=== PATIENT | female | born 1985 ===

== ENCOUNTER 2022-12-18 10:14 | Inpatient (IN) | payer OTHER ==
[~2022-12-18] VITALS: Ht 162.6 cm; Wt 70.8 kg
[2022-12-25] MEDS ORDERED: NAPR500T14 PO (09:13)
[2022-12-25] MEDS ORDERED: Tylenol #3 PO (09:13)
== END 2022-12-25 09:29 | disposition home or self-care (01) | DRG 743 ==
LOC: OB/GYN 12-24 07:30 → O/R 12-24 09:05 → OB/GYN 12-24 15:30
PROVIDERS: ADMIT Obstetrics & Gynecology; ATTEND Obstetrics & Gynecology
PROC: 0UT7FZZ Resection of Bilateral Fallopian Tubes, Via Natural or Artificial Opening With Percutaneous Endoscopic Assistance (ICD-10-PCS; 2022-12-24)
PROC: 0JQC0ZZ Repair Pelvic Region Subcutaneous Tissue and Fascia, Open Approach (ICD-10-PCS; 2022-12-24)
PROC: 0USG0ZZ Reposition Vagina, Open Approach (ICD-10-PCS; 2022-12-24)
PROC: 0TJB8ZZ Inspection of Bladder, Via Natural or Artificial Opening Endoscopic (ICD-10-PCS; 2022-12-24)
PROC: 0UT9FZZ Resection of Uterus, Via Natural or Artificial Opening With Percutaneous Endoscopic Assistance (ICD-10-PCS; principal; 2022-12-24 15:30)
DX: D25.1 Intramural leiomyoma of uterus (principal); N72 Inflammatory disease of cervix uteri; Z20.822 Contact with and (suspected) exposure to COVID-19; N81.11 Cystocele, midline